=== PATIENT | female | born 1990 | race Caucasian/White ===

== ENCOUNTER 2018-04-05 22:32 | Emergency (ER) | payer SELFPAY ==
[2018-04-05 22:56] VITALS: BP 117/60; PULSE 87; TEMP 98.3; BMI 31.7
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
[2018-04-05] MEDS ORDERED: SODIUM CHLORIDE FOR INHALATION 3 ML VIAL.NEB IH ONE (23:37)
[2018-04-05] MEDS ORDERED: PENICILLIN V POTASSIUM 500 MG TABLET PO ONE (23:59)
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
== END 2018-04-06 00:30 | disposition home or self-care (01) ==
LOC: JER 22:32
DX: J02.0 Streptococcal pharyngitis (principal)
CPT/HCPCS: 87880; 99283-25